=== PATIENT | male | born 1965 | race Caucasian/White ===

== ENCOUNTER 2023-11-19 12:38 | Outpatient (CLI) | payer OTHER, SELFPAY | END 2023-11-19 12:39 | disposition home or self-care (01) | LOC: ANHBWCAUD 12:39 | PROVIDERS: PCP Emergency Medicine; Visit Provider Otolaryngology | DX: H90.72 Mixed conductive and sensorineural hearing loss, unilateral, left ear, with unrestricted hearing on the contralateral side (principal) | CPT/HCPCS: 92557; 92567 ==

== ENCOUNTER 2024-02-16 11:53 | Emergency (ER) | payer OTHER, SELFPAY ==
--- NOTE | ~2024-02-16 | US_ITS ---
US venous doppler UE LT DATE: 02/16/2024 15:15 INDICATION: Left upper extremity swelling TECHNIQUE: Real-time and color flow imaging of the left upper extremity veins COMPARISON: None FINDINGS: The left internal jugular, subclavian, axillary, brachial, basilic, cephalic, radial and ul piter veins are patent. There is no evidence of deep venous thrombosis. IMPRESSION: Negative Reviewed, dictated and finalized at [facility]. Reviewed, dictated and finalized at [facility]. IMPRESSION: Negative
[2024-02-16 12:06] VITALS: BP 149/83; PULSE 77; RESP 12; TEMP 36.6; O2SAT 100
[2024-02-16 14:24] VITALS: BP 161/90; PULSE 76; RESP 14; TEMP 37; O2SAT 100
[2024-02-16 15:46] VITALS: BP 140/91; PULSE 76; RESP 16; O2SAT 96
--- NOTE | 2024-02-16 17:23 | ED.GENADULT ---
HPI - General Adult General Chief complaint: Extremity Injury, Upper Stated complaint: right arm swelling Time Seen by Provider: 02/16/24 14:42 History of Present Illness HPI narrative: Patient has had 1 week of left hand swelling and pain, the swelling is limiting his movement. Has already had x-rays lower normal, had a course of steroids that did not help much. Chest pain or trouble breathing. No history of smoking Related Data Allergies Allergy/AdvReac Type Severity Reaction Status Date / Time No Known Allergies Allergy Mild Verified 02/16/24 14:27 Review of Systems Review of Systems: All systems reviewed & are unremarkable except as noted in HPI and below Exam Narrative: EXAMINATION OF ORGAN SYSTEMS/BODY AREAS: Constitutional: Vital signs per nursing GENERAL:[No acute distress, non-toxic appearing.] HEAD: Normal with no signs of head trauma. EYES: EOMI, conjunctiva normal ENT: Hearing grossly intact LUNGS: Nonlabored breathing. HEART: [Regular rate and rhythm] ABD: [Soft], [nontender to palpation] EXT: Swelling to L hand compared to R; no redness or skin changes, no severe tenderness, he has painless passive ROM. Normal cap refill and radial pulses. Soft compartments SKIN: [No rashes or lesions.] NEURO: [Alert and oriented x 3. No gross focal sensory or strength deficits.] PSYCH: Normal affect Course Vital Signs Vital signs: Vital Signs Temperature 97.8 F 02/16/24 12:06 Pulse Rate 77 02/16/24 12:06 Respiratory Rate 12 02/16/24 12:06 Blood Pressure 149/83 H 02/16/24 12:06 Pulse Oximetry 100 02/16/24 12:06 Oxygen Delivery Room Air 02/16/24 12:06 Temperature 98.6 F 02/16/24 14:24 Pulse Rate 76 02/16/24 15:46 Respiratory Rate 16 02/16/24 15:46 Blood Pressure 140/91 H 02/16/24 15:46 Pulse Oximetry 96 02/16/24 15:46 Oxygen Delivery Room Air 02/16/24 14:24 Medical Decision Making [facility] Narrative Medical decision making narrative: Patient presenting with atraumatic left hand swelling and pain for a week, had normal x-rays, he is neurovascularly intact here, with painless range of motion, but there were have very low concern for ischemic hand, he has soft compartments, and already has normal x-rays so doubt fractures. I suspect most likely arthritis or gout but did obtain ultrasound to rule out DVT. This is normal, I will given follow-up to Orthopedics and return precautions. He will be discharged at this time and already has Orthopedics follow-up 3 days. Vital Signs Vital Signs: Vital Signs Temperature 97.8 F 02/16/24 12:06 Pulse Rate 77 02/16/24 12:06 Respiratory Rate 12 02/16/24 12:06 Blood Pressure 149/83 H 02/16/24 12:06 Pulse Oximetry 100 02/16/24 12:06 Oxygen Delivery Room Air 02/16/24 12:06 Temperature 98.6 F 02/16/24 14:24 Pulse Rate 76 02/16/24 15:46 Respiratory Rate 16 02/16/24 15:46 Blood Pressure 140/91 H 02/16/24 15:46 Pulse Oximetry 96 02/16/24 15:46 Oxygen Delivery Room Air 02/16/24 14:24 Discharge Plan Discharge Clinical Impression: Edema of hand Patient Disposition: Home, Self-Care Condition: Stable Instructions: Antibiotic Form, Arthralgia (ED) Prescriptions: New naproxen 250 mg tablet 250 mg PO BID PRN (Reason: pain) Qty: 30 0RF Follow-up/Referrals: Oral Ambrosio MD [Physician] - 2 Days Johnathan Bernal MD [Primary Care Provider] -
== END 2024-02-16 16:06 | disposition home or self-care (01) ==
PROVIDERS: Emergency Provider Emergency Medicine; PCP Emergency Medicine
DX: R60.9 Edema, unspecified (principal)
CPT/HCPCS: 93971; 99284

== ENCOUNTER 2024-03-17 09:42 | Outpatient (CLI) | payer OTHER, SELFPAY ==
--- NOTE | 2024-03-17 11:00 | NEURO_ITS ---
Impression: # Complains of inability to move left hand. Non-diabetic. # Normal Nerve Conduction Study; No Carpal Tunnel Syndrome or ulnar neuropathy. # Normal needle/EMG exam without denervation potentials or myotonia. # Clinical correlation recommended. Nerve Conduction Studies Anti Sensory Summary Table Stim Site NR Peak (ms) P-T Amp (?V) Site1 Site2 Delta-P (ms) Dist (cm) Steven (m/s) Left Median Anti Sensory (2-3nd Digit) Wrist 3.0 79.4 Wrist 2-3nd Digit 3.0 14.0 47 Wrist 2.9 76.5 Wrist 2-3nd Digit 3.0 14.0 47 Left Radial Anti Sensory (Base 1st Digit) Wrist 2.2 17.9 Wrist Base 1st Digit 2.2 0.0 Left Ulnar Anti Sensory (5th Digit) Wrist 2.6 53.1 Wrist 5th Digit 2.6 14.0 54 Motor Summary Table Stim Site NR Onset (ms) O-P Amp (mV) Site1 Site2 Delta-0 (ms) Dist (cm) Steven (m/s) Left Median Motor (Abd Poll Brev) Wrist 3.8 1.0 Elbow Wrist 5.6 30.0 54 Elbow 9.4 0.5 Left Ulnar Motor (Abd Dig Minimi) Wrist 2.7 5.5 A Elbow Wrist 5.2 31.0 60 A Elbow 7.9 5.3 F Wave Studies NR F-Lat (ms) L-R F-Lat (ms) Left Median (Mrkrs) (Abd Poll Brev) 30.76 Left Ulnar (Mrkrs) (Abd Dig Min) 30.36 EMG Side Muscle Nerve Root Ins Act Fibs Amp Dur Recrt Comment Left 1stDorInt Ulnar C8-T1 Nml Nml Nml Nml Nml Left Ext Indicis Radial (Post Int) C7-8 Nml Nml Nml Nml Nml Left Ext Digitorum Radial (Post Int) C7-8 Nml Nml Nml Nml Nml Left BrachioRad Radial C5-6 Nml Nml Nml Nml Nml Left PronatorTeres Median C6-7 Nml Nml Nml Nml Nml Left Abd Poll Brev Median C8-T1 Nml Nml Nml Nml Nml Left ABD Dig Min Ulnar C8-T1 Nml Nml Nml Nml Nml Left Biceps Musculocut C5-6 Nml Nml Nml Nml Nml Left Triceps Radial C6-7-8 Nml Nml Nml Nml Nml Left Deltoid Axillary C5-6 Nml Nml Nml Nml Nml MTDD
== END 2024-03-17 09:43 | disposition home or self-care (01) ==
LOC: ANHNEURO 09:44
PROVIDERS: PCP Emergency Medicine; Visit Provider Physician Assistant Surgical
DX: R22.32 Localized swelling, mass and lump, left upper limb (principal)
CPT/HCPCS: 95886; 95909

== ENCOUNTER 2025-05-13 12:51 | Outpatient (CLI) | payer OTHER, SELFPAY ==
--- OUTSIDE RECORDS SUMMARY | 2025-05-13 12:58 | XMS_ITS | Clinical Summary ---
Author Organization [facility] Address [address] [place] [address] Care Team Providers Care Veneer Glue Spreader Name Role Phone Johnathan Bernal MD Primary Care Provider [phone] Luis Enrique Perea MD Unavailable Allergies Active Allergy Reactions Criticality Noted Date Comments Munoz Hives Medium 06/08/2024 Medications aspirin 81 mg chewable tabletIndications: prevention of thrombosis Take 1 tablet (81 mg total) by mouth daily 30 tablet 06/11/20 25 Active atorvastatin (LIPITOR) 40 mg tablet Take 1 tablet (40 mg total) by mouth daily 30 tablet 06/11/20 25 Active clopidogreL (PLAVIX) 75 mg tablet Take 1 tablet (75 mg total) by mouth daily 30 tablet 06/11/20 25 Active losartan (COZAAR) 50 mg tablet Take 1 tablet (50 mg total) by mouth daily 30 tablet 06/11/20 25 Active Farxiga 10 mg tablet Take 1 tablet (10 mg total) by mouth daily Active ezetimibe (ZETIA) 10 mg tablet Take 1 tablet (10 mg total) by mouth daily Active metoprolol XL (TOPROL-XL) 25 mg extended release tablet Take 1 tablet (25 mg total) by mouth daily Active spironolactone (ALDACTONE) 25 mg tabletIndications: Ischemic cardiomyopathy Take 1 tablet (25 mg total) by mouth daily 90 tablet 3 5 05/02/20 26 Active carvediloL (COREG) 6.25 mg tablet Take 1 tablet (6.25 mg total) by mouth 2 (two) times a day with meals 60 tablet 11 05/02/20 Discontinu ed(Alterna te therapy) finerenone (Kerendia) 10 mg tablet Take 10 mg by mouth daily 05/02/20 Discontinu ed(No longer taking - Do not display on AVS) Active Problems Problem Noted Date Diagnosed Date Essential hypertension 01/31/[address] elevation myocardial infarction (S PURNIMA) 01/31/2025 Ischemic cardiomyopathy 06/23/2024 STEMI (ST elevation myocardial infarction) 06/08 Encounters Date Type Department Care Team Description 05/02/2025 2:00 PM CDT Office Visit [facility] Cardiology [address] [place] [address] Aruna Wilkins NP Ischemic cardiomyopathy (Primary Dx); Coronary artery disease involving kluti kaah coronary artery of kl[place] ka[place] heart without angina pectoris 04/18/2025 5:19 PM CDT - 04/18/2025 11:59 PM CDT Hospital Encounter [facility] [address] [place] [address] Lesion of ulnar nerve, left upper limb Discharge Disposition: Discharge to home or self care 02/23/2025 10:00 AM CDT - 02/23/2025 11:30 AM CDT Surgery [facility] Cardiac Catheterization Lab [address] [place] [id number] Sherri Taylor MD LEFT HEART CATHETERIZATION WITH CORONARY ANGIOGRAPHY AND WITH OR WITHOUT LEFT VENTRICULOGRAM [id number] 02/23/2025 7:42 AM CDT - 02/23/2025 2:21 PM CDT Hospital Encounter [facility] Cardiac Catheterization Lab [address] [place] [phone] Sherri Taylor MD Ischemic cardiomyopathy; ST elevation myocardial infarction (STEMI), unspecified artery (HCC); History of ST elevation myocardial infarction (STEMI) Discharge Disposition: Discharge to home or self care from Last 3 Months Surgical History Surgery Date Site/Laterality Comments APPENDECTOMY HAND SURGERY Right fell through glass door repaired hand CARDIAC CATHETERIZATION 02/23/2025 N/A Procedure: LEFT HEART CATHETERIZATION WITH CORONARY ANGIOGRAPHY AND WITH OR WITHOUT LEFT VENTRICULOGRAM [id number]; Surgeon: Sherri Taylor MD; Location: CARDIAC [facility]; Service: Cardiovascular; Laterality: N/A; Medical devices from this surgery are in the Medical Devices section. Medical History Medical History Date Comments Ischemic cardiomyopathy ST elevation myocardial infarction (STEMI), unsp ecified artery (HCC) History of ST elevation myocardial infarction (S PURNIMA) Family History Medical History Relation Name Comments Heart disease Father Relation Name Status Comments Father Mother Social History Tobacco Use Types Packs/Day Years Used Date Smoking Tobacco: Never Smokeless Tobacco: Never Tobacco Cessation:Counseling Given: Not Answered [facility] Utilities Answer Date Recorded In the past 12 months has [employer] electric, gas, oil, or water [employer] threatened to shut off services in your home? No 06/08/2024 Social Connection and Isolation Panel Answer Date Recorded In a typical week, how many times do you talk on the phone with family, friends, or neighbors? More than three times a week 06/08/2024 How often do you get togethe r with friends or relatives? More than three times a week 06/08/2024 How often do you attend [facility] or confucianist services? Patient unable to answer 06/08/2024 Do you belong to any clubs o r organizations such as religious groups, unions, fraternal or athletic groups, or school groups? Patient unable to answer 06/08/2024 How often do you attend meet ings of the clubs or organizations you belong to? Patient unable to answer 06/08/2024 Are you , , di vorced, , never , or living with a partner? Patient unable to answer 06/08/2024 AUDIT-C Answer Date Recorded Q1: How often do you have a drink containing alcohol? Never 02/23/2025 Q2: How many drinks containi ng alcohol do you have on a typical day when you are drinking? Patient does not drink Q3: How often do you have si x or more drinks on one occasion? Never 02/23/2025 Overall Financial Resource Strain (CARDIA) Answe r Date Recorded How hard is it for you to pa y for the very basics like food, housing, medical care, and heating? Not hard at all 06/08/2024 Hunger Vital Sign Answer Date Recorded Within the past 12 months, y ou worried that your food would run out before you got the money to buy more. Never true 06/08/20 24 Within the past 12 months, t he food you bought just didn't last and you didn't have money to get more. Never true 06/08/2024 PRAPARE - Transportation Answer Date Re corded In the past 12 months, has l ack of transportation kept you from medical appointments or from getting medications? No 05/30 In the past 12 months, has l ack of transportation kept you from meetings, work, or from getting things needed for daily living? No 06/08/2024 Housing Stability Vital Sign Answer Jae e Recorded In the last 12 months, was t here a time when you were not able to pay the mortgage or rent on time? No 06/08/2024 In the past 12 months, how m any times have you moved where you were living? 0 06/08/2024 At any time in the past 12 m [facility], were you homeless or living in a half-way (including now)? No 06/08/2024 Personal Safety Answer Date Recorded Have you ever been in or are you currently in a harmful physical or emotional relationship or is someone making you feel afraid or unsafe? 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 Gender Identity Not on file Sexual Orientation Not on file Obstetrics History Last Filed Vital Signs Vital Sign Reading Time Taken Comments Blood Pressure 128/76 05/02/2025 1:59 PM CDT Pulse 63 05/02/2025 1:59 PM CDT Temperature 36.6 C (97.9 F) 02/23/2025 7:57 AM CDT Respiratory Rate 18 02/23/2025 2:05 PM CDT Oxygen Saturation 99% 05/02/2025 1:59 PM CDT Inhaled Oxygen Concentration - - Weight 93.4 kg (206 lb) 05/02/2025 1:59 PM CDT Height 177.8 cm (5' 10) 05/02/2025 1:59 PM CDT Body Mass Index 29.56 05/02/2025 1:59 PM CDT Plan of Treatment Health Maintenance Due Date Last Done Comments Colon Cancer Screening-Colonoscopy 1965 Depression Screening 1965 Hepatitis C Screening 1965 Prostate Cancer Screening-PSA 1965 DTaP/Tdap/Td Vaccine (1 - Tdap) 1974 Hepatitis B Screening 1981 Regular Well Visit/Exam 18-64 1981 Zoster Vaccine (1 of 2) 2013 Influenza Vaccine (#1) 2025 Pneumococcal vaccine <65 Aged Out No longer eligible based on patient's age to complete this topic Medical Devices Implanted Type Area News Production Assistant Device Identifier Shelf Expiration Date Model / Serial / Lot Now[employer] Synergy Xd Monorail 2.5mm 16mm 144cm Delivery System 1 Access [id number] - [id number] - [id number] Implanted:Qty: 1 on 06/08/2024 by Luis Enrique Perea MD at [facility] [email or web address] Cindy 11/16/2025 [id number] 250 / [id number] / [id number] NowPublic Synergy Xd Monorail 3mm 20mm 144cm Delivery System 1 Access Port [id number] - [id number] - [id number] Implanted:Qty: 1 on 06/08/2024 by Luis Enrique Perea MD at [facility] [employer] [facility] 02/10/2026 [id number] 300 / [id number] / [id number] Cord Mynxgrip 6-7fr Balloon Catheter Integrate Sealant Lock Latex Free [id number] - [id number] Implanted:Qty: 1 on 06/08/2024 by Luis Enrique Perea MD at [facility] 03/24/2026 [id number] / / [id number] Medtronic Card Vasc Surgery 2.00 X 12mm [place]by [place] Rx Coronary Stent [id number] - [id number] Implanted:Qty: 1 on 06/29/2024 by Luis Enrique Perea MD at [facility] Med[employer]onic Card Vasc Surgery 09/29/2026 [id number] / / [id number] Medtronic Card Vasc Surgery 2.00 X 12mm Kelby [place] Rx Coronary Stent [id number] - [id number] Implanted:Qty: 1 on 06/29/2024 by Luis Enrique Perea MD at [facility] Medtronic Card Vasc Surgery 01/17/2027 [id number] / / [id number] [email or web address] Device Closure Vascade Od5 Fr Femoral Artery [id number] - [id number] Implanted:Qty: 1 on 02/23/2025 by Sherri Taylor MD at [facility] [employer] 10/27/2026 [id number] / / [id number] Procedures Procedure Name Priority Date/Time Associated Diagnosis Comments MRI CERVICAL SPINE WO CONTRAST Schedule Routine, Read Routine (OP Routine) 04/18/2025 5:59 PM CDT Lesion of ulnar nerve, left upper limb LEFT HEART CATHETERIZATION WITH CORONARY ANGIOGRAPHY AND WITH AND WITHOUT LEFT VENTRICULOGRAM Routine 02/23/2025 11:52 AM CDT Ischemic cardiomyopathy ST elevation myocardial infarction (STEMI), unspecified artery (HCC) History of ST elevation myocardial infarction (STEMI) EGFR STAT 02/23/2025 8:01 AM CDT DIFFERENTIAL AUTO STAT 02/23/2025 8:0 1 AM CDT CBC WITH AUTO DIFFERENTIAL STAT 02/23/2025 8:01 AM CDT BASIC METABOLIC PANEL STAT 02/23/2025 8:01 AM CDT from Last 3 Months Results * MRI Cervical Spine WO Contrast (04/18/2025 5:59 PM CDT) Anatomical Region Laterality Modality Spine N/A Magnetic Resonan ce 04/19/2025 10:2 8 AM CDT Narrative 04/19/2025 10:37 AM CDT EXAM DESCRIPTION: MRI CERVICAL SPINE WO CONTRAST REASON FOR STUDY: lesion of ulnar nerve, left upper limb Pt c/o numbness and tingling in Left arm. Pt has had carpal tunnel surgery and ulnar nerve surgery. Still having symptoms. TECHNIQUE: Sagittal and Axial imaging includes T1, T2, STIR and gradient echo sequences. COMPARISON: None available FINDINGS: ALIGNMENT: Normal. VERTEBRAE: Vertebral body height well-maintained. Normal appearing marrow. DISCS: Mild multilevel degenerative disc height loss and disc desiccation. HARDWARE: None in the spine. CORD: Normal in size and signal intensity. INDIVIDUAL LEVELS: C1-C2: No significant spinal stenosis. C2-C3: Right eccentric small posterior disc osteophyte complex. Normal facet joints. Mild right uncovertebral arthropathy. No neural foraminal or spinal canal stenosis C3-C4: Small right eccentric posterior disc osteophyte complex. Mild uncovertebral and facet arthropathy. Mild right neural foraminal stenosis. No spinal canal stenosis C4-C5: Minimal disc bulge. Mild right uncovertebral arthropathy. Mild facet arthropathy. Mild right neural foraminal stenosis. No spinal canal stenosis C5-C6: Mild disc bulge. Mild facet and uncovertebral arthropathy. Mild left neural foraminal stenosis. Minimal ligamentum flavum thickening. No substantial spinal canal stenosis C6-C7: Mild disc bulge. Mild to moderate facet arthropathy. Mild uncovertebral arthropathy. Mild bilateral neural foraminal stenosis. No spinal canal stenosis C7-T1: No significant disc bulge. Rrmy-kj-oghemvfv facet arthropathy. Normal uncovertebral joints. No neural foraminal or spinal canal stenosis is seen. BASE OF BRAIN: No significant finding. UPPER THORACIC: Incompletely imaged. No significant spinal stenosis or foraminal stenosis. OTHER: No other significant finding. IMPRESSION: Mild multilevel cervical degenerative disc and joint disease, as detailed level by level above. No significant spinal canal stenosis. Mild multilevel neural foraminal stenosis. THIS IS AN ELECTRONICALLY VERIFIED FINAL REPORT 04/19/2025 10:37 AM - Electronically signed by Bill Peng M.D. MZ: SULY Report ID: [id number] Reading Location: [id number] Procedure Note Bill Peng MD - 04/19/2025 EXAM DESCRIPTION: MRI CERVICAL SPINE WO CONTRAST REASON FOR STUDY: lesion of ulnar nerve, left upper limb Pt c/o numbness and tingling in Left arm. Pt has had carpal tunnel surgeryand ulnar nerve surgery. Still having symptoms. TECHNIQUE: Sagittal and Axial imaging includes T1, T2, STIR and gradientecho sequences. COMPARISON: None available FINDINGS: ALIGNMENT: Normal. VERTEBRAE: Vertebral body height well-maintained. Normal appearingmarrow. DISCS: Mild multilevel degenerative disc height loss and discdesiccation. HARDWARE: None in the spine. CORD: Normal in size and signal intensity. INDIVIDUAL LEVELS: C1-C2: No significant spinal stenosis. C2-C3: Right eccentric small posterior disc osteophyte complex. Normal facet joints. Mild right uncovertebral arthropathy. No neural foraminalor spinal canal stenosis C3-C4: Small right eccentric posterior disc osteophyte complex. Mild uncovertebral and facet arthropathy. Mild right neural foraminalstenosis. No spinal canal stenosis C4-C5: Minimal disc bulge. Mild right uncovertebral arthropathy. Mild facet arthropathy. Mild right neural foraminal stenosis. No spinal canal stenosis C5-C6: Mild disc bulge. Mild facet and uncovertebral arthropathy. Mild left neural foraminal stenosis. Minimal ligamentum flavum thickening. No substantial spinal canal stenosis C6-C7: Mild disc bulge. Mild to moderate facet arthropathy. Mild uncovertebral arthropathy. Mild bilateral neural foraminal stenosis. No spinal canal stenosis C7-T1: No significant disc bulge. Zdsu-ia-fsmanzld facet arthropathy. Normal uncovertebral joints. No neural foraminal or spinal canal stenosisis seen. BASE OF BRAIN: No significant finding. UPPER THORACIC: Incompletely imaged. No significant spinal stenosis or foraminal stenosis. OTHER: No other significant finding. IMPRESSION: Mild multilevel cervical degenerative disc and joint disease, as detailed level by level above. No significant spinal canal stenosis. Mildmultilevel neural foraminal stenosis. THIS IS AN ELECTRONICALLY VERIFIED FINAL REPORT 04/19/2025 10:37 AM - Electronically signed by Bill Peng M.D. MZ: SULY Report ID: [id number] Reading Location: [id number] us Jhonny Paniagua MD [facility] MRI PROCEDURES Final Resul t * LEFT HEART CATHETERIZATION WITH CORONARY ANGIOGRAPHY AND WITH AND WITHOUT LEFT VENTRICULOGRAM (02/23/2025 11:52 AM CDT) Anatomical Region Laterality Modality X-Ray Angiograph y Narrative 02/23/2025 12:18 PM CDT CARDIAC CATHETERIZATION REPORT Rogers Germain IP ENCOUNTER: @CHRIS@ Date of Procedure: 02/23/2025 BIRTHDATE: 1965 MOUNTER SAXOPHONES: Sherri Taylor MD PREPROCEDURE DIAGNOSES: Apparently had anterior STEMI May 2024 and at that time he had total occlusion of the mid LAD that was treated with 3 x 20 synergy stent and 2.5 x 16 synergy stents and postdilatation to 3.5 noncompliant balloon and 2.5 noncompliant balloon. He was then brought back for staged intervention in June 2024 with treatment for the right PDA using 2 x 12 stenting and then another 2 x 12 stenting distal to it. There was residual disease in obtuse marginal 2 about 70% and severe stenosis in the distal part of the left posterolateral branch that was treated medically. He said that since the heart attack he gets dyspnea on exertion, tiredness and heaviness in his chest. Therefore he is here for cardiac catheterization PROCEDURES PERFORMED: Moderate sedation that started at 11:18 a.m. and ended at 11:51 a.m. with total duration 33 minutes using 4mg of Versed and 75mcg of fentanyl. The registered nurse was mayelin ibarra. Selective left and right coronary angiogram. Left heart catheterization with measurement of LVEDP and measure gradient across aortic valve. Right common femoral arterial angiogram. Deployment Five Jamaican Vascade closure device. FINDINGS: Left main unremarkable. LAD has patent stents proximally. Diffuse irregularities. Medium size diagonal branch with diffuse irregularities0. Left circumflex artery has diffuse irregularities. There is an OM1 that is small to medium in caliber 30% proximally. Right coronary artery is large and dominant, 30% proximally, 30% in the mid and 40-50% distally just before the bifurcation. Patent stents PDA. LVEDP 15 mm Hg and no gradient across aortic valve. Opening pressure 121/85 and closing pressure 124/87. Right common femoral arterial angiogram shows no significant disease in the right common femoral artery. COMPLICATIONS: None ESTIMATED BLOOD LOSS: 5 mL PROCEDURAL DESCRIPTION: After informed consent patient was brought into the experimental machining lab manager where she was draped and prepped in the usual manner. Moderate sedation was given and the right groin infiltrated using 1% lidocaine. Five Jamaican sheath was obtained using micropuncture needle and modified Seldinger technique. Selective left coronary angiogram was done using JL4 catheter with the tip of the catheter placed in the left main coronary artery. Selective right coronary angiogram was done using JR4 catheter with the tip of the catheter placed in the right coronary artery. After that 5 Jamaican pigtail catheter was advanced across aortic valve into the left ventricular with measurement of LVEDP and measure gradient across aortic valve. Right common femoral arterial angiogram was done and deployed Five Jamaican Vascade closure device. Access site: Right common femoral artery. Hemostasis: Five Jamaican Vascade closure device. CONCLUSIONS Patent stents LAD, RCA and PDA. PLAN Continue aggressive risk factor modification for CAD Sherri Taylor MD CV CARDIAC CATH PROC EDURES Final Result * eGFR (02/23/2025 8:01 AM CDT) Pathologist [facility] eGFR >90 >=60 mL/min/1. 73 m2 Comment: Interpretive Data Reference Interval Normal >/= 90 mL/min/1.73m2 Mildly decreased* 60 - 89 mL/min/1.73m2 Mildly to moderately decreased 45 - 59 mL/min/1.73m2 Moderately to severely decreased 30 - 44 mL/min/1.73m2 Severely decreased 15 - 29 mL/min/1.73m2 Kidney Failure < 15 mL/min/1.73m2 *Relative to young adult level Estimated glomerular filtration rate is determined by the 2020 CKD-EPI equation recommended by the National Kidney Foundation (A Unifying Approach to GFR Estimation: Recommendations of the NKF-ASK Task Force on Reassessing the Inclusion of Race in Diagnosing Kidney Disease, JASN 202). The CKD-EPI equation should not be used for patients with unstable renal function and has not been validated in children and those over 70. Current interpretive data was last reviewed 2021. Blood 02/23/2025 8:01 AM CDT 02/23/2025 8:45 AM CDT us Sherri Taylor MD LAB BLOOD ORDERABLES Final Result [facility] [id number] [address] Department [place] [address] [phone] * Differential, auto (02/23/2025 8:01 AM CDT) Neutrophil abs 5.05 1.50 - 6.50 K/cumm Imm gran abs 0.03 0.00 - 0.10 K/cumm [facility] Lymphocyte abs 2.66 0.80 - 3.30 K/cumm [facility] Monocyte abs 0.72 0.20 - 0.80 K/cumm [facility] Eosinophil abs 0.18 0.00 - 0.50 K/cumm [facility] Basophil abs 0.06 0.00 - 0.10 K/cumm [facility] Neutrophil pct 58.0 % [facility] Comment: Interpretive Data Percent cell count reference ranges are not reported, since discordance with absolute values may lead to misinterpretation of CBC data. Current Interpretive Data was last revised on 2018. Imm gran pct 0.3 % [facility] Comment: Interpretive Data Percent cell count reference ranges are not reported, since discordance with absolute values may lead to misinterpretation of CBC data. Current Interpretive Data was last revised on 2018. Lymphocyte pct 30.6 % [facility] Comment: Interpretive Data Percent cell count reference ranges are not reported, since discordance with absolute values may lead to misinterpretation of CBC data. Current Interpretive Data was last revised on 2018. Monocyte pct 8.3 % [facility] Comment: Interpretive Data Percent cell count reference ranges are not reported, since discordance with absolute values may lead to misinterpretation of CBC data. Current Interpretive Data was last revised on 2018. Eosinophil pct 2.1 % [facility] Comment: Interpretive Data Percent cell count reference ranges are not reported, since discordance with absolute values may lead to misinterpretation of CBC data. Current Interpretive Data was last revised on 2018. Basophil pct 0.7 % [facility] Comment: Interpretive Data Percent cell count reference ranges are not reported, since discordance with absolute values may lead to misinterpretation of CBC data. Current Interpretive Data was last revised on 2018. Blood 02/23/2025 8:01 AM CDT 02/23/2025 8:45 AM CDT Sherri Taylor MD LAB BLOOD ORDERABLES Final Result [facility] [id number] [place] [address] * CBC with auto differential (02/23/2025 8:01 AM CDT) WBC 8.70 3.80 - 9.90 K/cumm Hgb 15.7 13.0 - 17.5 g/dL [facility] Hct 46.6 38.9 - 50.3 % [facility] Plt 193 150 - 400 K/cumm [facility] MPV 10.0 9.1 - 12.3 fL [facility] CH RBC 5.04 4.30 - 5.80 M/cumm [facility] MCV 92.5 81.3 - 96.4 fL [facility] CH MCH 31.2 27.1 - 33.3 pg [facility] MCHC 33.7 32.3 - 35.7 g/dL [facility] RDW CV 13.4 11.1 - 14.9 % [facility] CH RDW SD 45.1 35.7 - 48.1 fL [facility] NRBC abs 0.00 0.00 - 0.01 K/cumm [facility] Blood 02/23/2025 8:01 AM CDT 02/23/2025 8:45 AM CDT Narrative [facility] - 02/23/2025 9:23 AM CDT If most recent labs were drawn prior to 4 AM, draw only prior to initiating procedure. Sherri Taylor MD LAB BLOOD ORDERABLES Final Result [facility] [address] [id number] [address] Department [place] [address] * Basic metabolic panel (02/23/2025 8:01 AM CDT) Sodium 142 135 - 145 mmol/L Potassium, pl 3.8 3.3 - 4.9 mmol/L [facility] Chloride 109 97 - 110 mmol/L [facility] CO2 23 22 - 32 mmol/L [facility] Anion gap 10 2 - 15 mmol/L [facility] BUN 9 6 - 25 mg/dL [facility] Creatinine 0.88 0.80 - 1.30 mg/dL [facility] Glucose 108 70 - 199 mg/dL [facility] Comment: Interpretive Data Fasting glucose >/= 126 mg/dl is diagnostic for diabetes. Fasting is defined as no caloric intake for at least 8 hours. Fasting glucose between 100 mg/dl to 125 mg/dl is diagnostic of prediabetes. In a patient with classic symptoms of hyperglycemia or hyperglycemic crisis, a random glucose >/= 200 mg/dl is diagnostic for diabetes. In the absence of unequivocal hyperglycemia, results should be confirmed by repeat testing. The classification and Diagnosis of Diabetes Diabetes Care 202; 46: S19-S40. Current interpretive data was last revised 2022. Calcium 9.5 8.5 - 10.3 mg/dL [facility] Blood 02/23/2025 8:01 AM CDT 02/23/2025 8:45 AM CDT us Sherri Taylor MD LAB BLOOD ORDERABLES Final Result [facility] [id number] [address] Department [place] [address] from Last 3 Months Insurance [facility] Advance Directives For more information, please contact: [phone] * Full Code (Latest Code Status on File) Date Activated Date Inactivated Comments 06/10/2024 11:05 AM 06/11/2024 3:33 PM Care Teams Veneer Glue Spreader Relationship Specialty Start Date End Date Johnathan Bernal MD [address] [place] [address] PCP - General Family Medicine 06/08/24 Luis Enrique Perea MD [address] [place] [id number] Consulting Physician Cardiology 06/11/24
[2025-05-13 14:32] LABS: Anion Gap 9 mmol/L (4-12); Blood Urea Nitrogen 13 mg/dL (9-20); Calcium 9.5 mg/dL (8.4-10.2); Carbon Dioxide 24 mmol/L (22-30); Chloride 107 mmol/L (98-107); Estimated Glomerular Filt Rate > 60; Glucose 91 mg/dL (65-110); Potassium 4.1 mmol/L (3.4-5.0); Sodium 140 mmol/L (137-145)
== END 2025-05-13 12:52 | disposition home or self-care (01) ==
LOC: ANHLAB 12:56
PROVIDERS: PCP Emergency Medicine; Visit Provider Nurse Practitioner Adult Health
DX: I25.5 Ischemic cardiomyopathy (principal)
CPT/HCPCS: 36415; 80048